=== PATIENT | male | born 1955 | race Caucasian/White ===

== ENCOUNTER 2024-12-08 09:59 | Emergency (ER) | payer MEDICAID ==
[~2024-12-08] VITALS: Ht 167.6 cm; Wt 84.0 kg
[2024-12-08 10:08] VITALS: O2SAT 98
[2024-12-08 11:10] LABS: CARBON DIOXIDE 27 mEq/L (21-32); CHLORIDE 91 mEq/L (98-107); POTASSIUM 4.7 mEq/L (3.5-5.1); SODIUM 135 mEq/L (136-145)
[2024-12-08 11:16] LABS: BASOPHILS % 0.8 % (0.0-2.0); GLUCOSE 96 mg/dL (70-105); HEMATOCRIT. 29.9 % (42.0-52.0); MEAN CORPUSCULAR HEMOGLOBIN 30.1 pg (28.0-32.0); MEAN CORPUSCULAR HGB CONC 33.4 g/dL (31.0-37.0); MEAN PLATELET VOLUME 7.6 fl (7.4-10.4); MONOCYTES % 9.2 % (2.0-8.0); PLATELET 215 x1000/uL (130-400); RED BLOOD CELL COUNT 3.33 mill/uL (4.7-6.1); RED CELL DISTRIBUTION WIDTH 14.3 % (11.6-14.6); UREA NITROGEN BLOOD 56 mg/dL (9-23); WHITE BLOOD COUNT 8.9 x1000/uL (4.5-11.0)
[2024-12-08 11:17] LABS: ALANINE AMINOTRANSFERASE 9 IU/L (10-49); ALBUMIN 4.2 g/dL (3.2-4.8); ASPARTATE AMINOTRANSFERASE 31 IU/L (<34); TROPONIN I HIGH SENSITIVITY 12 ng/L (3.0-53)
[2024-12-08 11:18] LABS: BILIRUBIN TOTAL 0.2 mg/dL (0.1-1.0); PROTEIN TOTAL 7.1 g/dL (6.0-8.3)
[2024-12-08 11:26] LABS: BILIRUBIN DIRECT < 0.1 mg/dL (<=3.0)
[2024-12-08 11:27] LABS: CREATININE 12.4 mg/dL (0.6-1.3)
[2024-12-08 14:05] LABS: TROPONIN I HIGH SENSITIVITY 13 ng/L (3.0-53)
[2024-12-08 14:20] VITALS: BP 156/89; PULSE 80; RESP 12; TEMP 37.28076; O2SAT 98
[2024-12-08] MEDS ORDERED: ZOLPIDEM TARTRATE 5MG TABLET PO PRN (23:45)
[2024-12-08] MEDS ORDERED: MAGNESIUM/ALUMINUM HYDROXIDE/SIMETHICONE 30ML UDC PO PRN (23:45)
[2024-12-08] MEDS ORDERED: ONDANSETRON HCL 4MG/2ML INJ IV PRN (23:45)
[2024-12-08] MEDS ORDERED: ACETAMINOPHEN 325MG TABLET PO PRN ×2 (23:45)
[2024-12-08] MEDS ORDERED: CLONIDINE 0.1MG TABLET PO PRN (23:45)
[2024-12-08] MEDS ORDERED: DIPHENHYDRAMINE 50MG/ML VIAL IV PRN (23:45)
[2024-12-09] MEDS ORDERED: SODIUM CHLORIDE 0.9% 3ML FLUSH IVF SCH (06:00)
== END 2024-12-08 17:15 | disposition left against medical advice (07) ==
LOC: ER 10:17 → EDBEDREQ 10:26 → EDBEDREQTM 11:54 → EDBEDREQ 11:54 → ER 17:15 → CANBEDREQ 17:54
DX: I12.0 Hypertensive chronic kidney disease with stage 5 chronic kidney disease or end stage renal disease (principal); N18.6 End stage renal disease; R14.0 Abdominal distension (gaseous); N28.9 Disorder of kidney and ureter, unspecified
CPT/HCPCS: 80076; 80048; 85025; 84484; 36415; 71045; 93005; 99291; Z7610

== ENCOUNTER 2025-10-31 15:45 | Emergency (ER) | payer MEDICARE ==
[~2025-10-31] VITALS: Ht 165.1 cm; Wt 90.0 kg
[2025-10-31 15:47] VITALS: O2SAT 98
[2025-10-31 16:53] LABS: BASOPHILS % 0.4 % (0.0-2.0); EOSINOPHILS % 3.8 % (0.0-5.0); HEMATOCRIT. 30.7 % (42.0-52.0); HEMOGLOBIN. 10.4 g/dL (14.0-18.0); LYMPHOCYTES % 7.5 % (20.0-50.0); MEAN PLATELET VOLUME 7.1 fl (7.4-10.4); MONOCYTES % 9.5 % (2.0-8.0); NEUTROPHILS % 78.8 % (40.0-76.0); PLATELET 209 x1000/uL (130-400); RED BLOOD CELL COUNT 3.56 mill/uL (4.7-6.1); RED CELL DISTRIBUTION WIDTH 13.5 % (11.6-14.6)
[2025-10-31 17:08] LABS: TROPONIN I HIGH SENSITIVITY 26 ng/L (3.0-53); UREA NITROGEN BLOOD 32 mg/dL (9-23)
[2025-10-31 17:09] LABS: ASPARTATE AMINOTRANSFERASE 19 IU/L (<34); PROTEIN TOTAL 6.3 g/dL (6.0-8.3)
[2025-10-31 17:10] LABS: BILIRUBIN DIRECT 0.1 mg/dL (<=3.0); BILIRUBIN TOTAL 0.2 mg/dL (0.1-1.0)
[2025-10-31 17:13] LABS: CREATININE 10.3 mg/dL (0.6-1.3)
[2025-10-31] MEDS: HYDROCODONE/ACETAMINOPHEN 5/325MG TABLET PO ONE (18:28)
[2025-10-31 19:29] VITALS: BP 165/64; PULSE 94; RESP 18; TEMP 36.9; O2SAT 98
== END 2025-10-31 19:21 | disposition home or self-care (01) ==
LOC: ER 15:45
DX: R10.9 Unspecified abdominal pain (principal); R53.1 Weakness; E78.00 Pure hypercholesterolemia, unspecified; I10 Essential (primary) hypertension; Z99.2 Dependence on renal dialysis
CPT/HCPCS: 36415; 74176; 80048; 80076; 84484; 85025; 93005; 99284